=== PATIENT | male | born 1995 | race Two or more races ===

== ENCOUNTER 2024-06-28 06:14 | Emergency (ER) | payer MEDICAID, OTHER ==
[~2024-06-28] VITALS: Ht 190.5 cm; Wt 99.7 kg
[2024-06-28 07:33] VITALS: BP 124/80; PULSE 74; RESP 20; TEMP 98.1; O2SAT 98
--- NOTE | 2024-06-28 07:48 | DVH ---
CLINICAL INDICATION: trauma TECHNIQUE: 3 radiographic views of the left hand were obtained. Comparison: None FINDINGS/IMPRESSION: There is no evidence of acute fracture or dislocation. The visualized joint space is well maintained. The alignment is anatomical. There is no radiopaque foreign body.
[2024-06-28] MEDS ORDERED: AMPICILLIN & SULBACTAM SODIUM 3 GM in SODIUM CHL 0.9% 100 ML IV ONE (08:15)
--- NOTE | 2024-06-28 08:22 | ED.PDOC ---
History of Present Illness(SKN HPI Comments 29 year male presents for dog bite to the left hand. Bite occurred today 1 hr ago Immunization status up-to-date Denies abnormal animal behavior Denies history of immunocompromise (HIV hep B hep C) Denies fever chills night sweats Last Tdap unknown Patient has sustained a puncture wound to the 3rd digit of the left hand. A puncture wound to the 4th digit of the left hand Chief Complaint: Animal Bite Time Seen by MD: 07:00 History of Present Illness: Nurses Notes, Medications, Allergies Allergies: Coded Allergies: Amoxicillin (Verified Allergy, Intermediate, 06/28/24) Home Meds Active Scripts Ibuprofen (Ibuprofen) 800 Mg Tab, 1 TAB PO TID for 7 Days, #21 TAB 0 Refills Prov:SHAWN HILLIARD NP 06/28/24 Clindamycin Hcl (Clindamycin Hcl) 300 Mg Cap, 300 MG PO TID for 7 Days, #21 CAP 0 Refills Prov:SHAWN HILLIARD NP 06/28/24 Sulfamethoxazole W/Trimethopri (Bactrim Ds Tablet) 1 Tab Tb, 1 TAB PO BID for 7 Days, #14 TAB 0 Refills Prov:SHAWN HILLIARD NP 06/28/24 Information Source: Patient Mode of Arrival: Ambulatory Family History Family History: Reviewed,noncontributory to illness Social History Smoker: Non-Smoker Alcohol: Denies ETOH Use Drugs: Denies Drug Use All Other Systems: Reviewed and Negative (per hpi) Physical Exam General Appearance: No Apparent Distress, Normal HEENT: Normal ENT Inspection, Pharynx Normal, TMs Normal Neck: Full Range of Motion, Non-Tender, Normal, Normal Inspection Respiratory: Chest Non-Tender, Lungs Clear, No Accessory Muscle Use, No Respiratory Distress, Normal Breath Sounds Cardiovascular: No Edema, No JVD, No Murmur, No Gallop, Normal Peripheral Pulses, Regular Rate/Rhythm Breast Exam: Deferred Gastrointestinal: No Organomegaly, Non Tender, No Pulsatile Mass, Normal Bowel Sounds, Soft Genitalia: Deferred Pelvic: Deferred Rectal: Deferred Extremities: No calf tenderness, Normal capillary refill, Normal inspection, Normal range of motion, Non-tender, No pedal edema Musculoskeletal : Apperance: Normal Neurologic: Alert, No Motor Deficits, Normal Affect, Normal Mood, No Sensory Deficits Cerebellar Function: Normal Reflexes: Normal Skin: Dry, Normal Color, Warm Lymphatic: No Adenopathy Was a procedure done? Was a procedure done?: Yes Sedation Sedation?: No Laceration Repair : Location L hand Length 3rd and 4th finger Anesthetic: Lidocaine Laceration Repair Prep: Saline, Betadine Laceration Repair Wound Comple: epidermis/dermis repair Laceration Repair: Simple, Bacitracin, Non-adherent gauze, Gauze Informed consent obtained: Yes Risks, benefits, and alternati: Yes Differential Diagnosis (INTG) Differential Diagnosis: Other X-Ray, Labs, Meds, VS Vital Signs Date Time Temp Pulse Resp B/P (MAP) Pulse Ox O2 Delivery O2 Flow Rate FiO2 06/28/24 07:33 98.1 74 20 124/80 (95) 98 98.1 06/28/24 07:30 114 20 94 Room Air 06/28/24 07:30 98.4 114 20 115/81 (92) 94 98.4 06/28/24 06:24 98.4 114 20 115/81 (92) 94 Current Medications Medications (Trade) Dose Ordered Sig/Joseph Route Start Time Stop Time Status Last Admin Diphtheria/ Tetanus/Acell Pertussis (Boostrix T-Dap) 0.5 ml ONCE ONCE IM 06/28/24 08:15 06/28/24 08:43 DC 06/28/24 08:52 Ketorolac Tromethamine (Toradol Injection) 30 mg ONCE ONCE IV 06/28/24 08:15 06/28/24 08:43 DC 06/28/24 09:03 Clindamycin Phosphate 50 ml @ 50 mls/hr ONCE ONCE IV 06/28/24 08:45 06/28/24 09:44 DC 06/28/24 09:03 X-Ray, Labs, Meds, VS Comment Based on the history, exam, and test performed, there does not seem to be a retained foreign body, nerve injury, vascular injury, tendon injury, bone injury or foreign body. Wound appears clean. No evidence of purulent discharge. Doubtful for rabies as the dog is not a wild animal. No rabies vaccine given. Tdap updated Wound cleaned in the ER with jet irrigation. After copious irrigation, wound was closed with (except on hand/foot) Patient will be discharged home with prophylactic antibiotics. Patient to follow-up tomorrow for wound check Time of 1ST Reevaluation: 08:30 Reevaluation 1ST: Improved Patient Education/Counseling: Diagnosis, Treatment Family Education/Counseling: Diagnosis, Treatment Departure 1 Departure Time of Disposition: 08:34 Impression: Primary Impression: Dog bite Qualified Codes: W54.0XXA - Bitten by dog, initial encounter Disposition: HOME / SELF CARE / HOMELESS Condition: Stable e-Prescriptions Ibuprofen (Ibuprofen) 800 Mg Tab 1 TAB PO TID for 7 Days, #21 TAB 0 Refills Prov: SHAWN HILLIARD NP 06/28/24 Clindamycin Hcl (Clindamycin Hcl) 300 Mg Cap 300 MG PO TID for 7 Days, #21 CAP 0 Refills Prov: SHAWN HILLIARD METAL BONDING PRESS OPERATOR 06/28/24 Sulfamethoxazole W/Trimethopri (Bactrim Ds Tablet) 1 Tab Tb 1 TAB PO BID for 7 Days, #14 TAB 0 Refills Prov: SHAWN HILLIARD METAL BONDING PRESS OPERATOR 06/28/24 Critical Care Note Critical Care Time?: No Stability Stability form required: No Heart Score Heart Score: Heart Score Response (Comments) Value History N/A 0 EKG N/A 0 Age N/A 0 Risk Factors N/A 0 Troponin N/A 0 Total 0 SHAWN HILLIARD NP Jun 28, 2024 08:21
[2024-06-28] MEDS ORDERED: CLIN1CAP70 PO (08:40)
[2024-06-28] MEDS ORDERED: BACDST PO (08:40)
[2024-06-28] MEDS: TETANUS-DIPTH-ACEL PERTUSSIS 0.5ML SYR Tdap IM ONE (08:52)
[2024-06-28] MEDS: KETOROLAC TROMETH 30 MG/ML 1ML VIAL IV ONE (09:03)
[2024-06-28] MEDS: CLINDAMYCIN 300MG IV 50 ML IV ONE (09:03)
[2024-06-28] MEDS ORDERED: IBUP-1456 PO (10:11)
[2024-06-28] MEDS ORDERED: NEOMYCIN-BACITRACIN-POLYM UNITDOSE PKG TOP OINT TOP ONE (10:15)
== END 2024-06-28 10:15 | disposition home or self-care (01) ==
LOC: ER 06:14
DX: S61.452A Open bite of left hand, initial encounter (principal); Z79.1 Long term (current) use of non-steroidal anti-inflammatories (NSAID); Z79.899 Other long term (current) drug therapy; Z88.1 Allergy status to other antibiotic agents; W54.0XXA Bitten by dog, initial encounter; Y93.89 Activity, other specified; Y92.89 Other specified places as the place of occurrence of the external cause; Y99.8 Other external cause status
CPT/HCPCS: 73130; 90471; 90715; 96365; 96375; 99284; J1885; J3490

== ENCOUNTER 2024-06-29 09:50 | Emergency (ER) | payer MEDICAID ==
[~2024-06-29] VITALS: Ht 188 cm; Wt 100.2 kg
[~2024-06-29 09:50] MED LIST: BACDST PO; CLIN1CAP70 PO; IBUP-1456 PO
--- NOTE | 2024-06-29 11:18 | ED.PDOC ---
History of Present Illness(SKN HPI Comments Male presents for wound check. Was seen yesterday after a dog bite. Started antibiotics and complaints no symptoms at this time Chief Complaint: Wound Check Time Seen by MD: 10:41 History of Present Illness: Nurses Notes, Medications, Allergies Allergies: Coded Allergies: Amoxicillin (Verified Allergy, Intermediate, 06/28/24) Home Meds Active Scripts Ibuprofen (Ibuprofen) 800 Mg Tab, 1 TAB PO TID for 7 Days, #21 TAB 0 Refills Prov:KAMARI HILLIARDDavid Anaya HEAVY EQUIPMENT DIESEL MECHANIC 06/28/24 Clindamycin Hcl (Clindamycin Hcl) 300 Mg Cap, 300 MG PO TID for 7 Days, #21 CAP 0 Refills Prov:KAMARI HILLIARDDavid Anaya HEAVY EQUIPMENT DIESEL MECHANIC 06/28/24 Sulfamethoxazole W/Trimethopri (Bactrim Ds Tablet) 1 Tab Tb, 1 TAB PO BID for 7 Days, #14 TAB 0 Refills Prov:KAMARI HILLIARDO Jaclyn HEAVY EQUIPMENT DIESEL MECHANIC 06/28/24 Information Source: Patient Mode of Arrival: Ambulatory Family History Family History: Reviewed,noncontributory to illness Social History Smoker: Non-Smoker Alcohol: Denies ETOH Use Drugs: Denies Drug Use All Other Systems: Reviewed and Negative (per hpi) Physical Exam General Appearance: No Apparent Distress, Normal HEENT: Normal ENT Inspection, Pharynx Normal, TMs Normal Neck: Full Range of Motion, Non-Tender, Normal, Normal Inspection Respiratory: Chest Non-Tender, Lungs Clear, No Accessory Muscle Use, No Respiratory Distress, Normal Breath Sounds Cardiovascular: No Edema, No JVD, No Murmur, No Gallop, Normal Peripheral Pulses, Regular Rate/Rhythm Breast Exam: Deferred Gastrointestinal: No Organomegaly, Non Tender, No Pulsatile Mass, Normal Bowel Sounds, Soft Genitalia: Deferred Pelvic: Deferred Rectal: Deferred Extremities: No calf tenderness, Normal capillary refill, Normal inspection, Normal range of motion, Non-tender, No pedal edema Musculoskeletal : Apperance: Normal Neurologic: Alert, weight tester II-XII nml as Tested, No Motor Deficits, Normal Affect, Normal Mood, No Sensory Deficits Cerebellar Function: Normal Reflexes: Normal Skin: Dry, Normal Color, Warm Lymphatic: No Adenopathy Was a procedure done? Was a procedure done?: No Differential Diagnosis (INTG) Differential Diagnosis: Cellulitis, Puncture Wound, Other X-Ray, Labs, Meds, VS Vital Signs Date Time Temp Pulse Resp B/P (MAP) Pulse Ox O2 Delivery O2 Flow Rate FiO2 06/29/24 10:15 97.3 78 20 113/64 (80) 96 X-Ray, Labs, Meds, VS Comment Patient was seen yesterday S/P dog bite. On today there is no concerns of spreading or worsening infection. Skin is warm dry appropriate for ethnicity. There is no spreading erythema. No fluctuance or crepitus to palpation. No discharge. Return tomorrow for wound check Time of 1ST Reevaluation: 11:17 Reevaluation 1ST: Improved Patient Education/Counseling: Diagnosis, Treatment Family Education/Counseling: Diagnosis, Treatment Departure 1 Departure Time of Disposition: 11:17 Impression: Primary Impression: Visit for wound check Disposition: 01 HOME / SELF CARE / HOMELESS Condition: Fair Discharged With: Self Critical Care Note Critical Care Time?: No Stability Stability form required: No Heart Score Heart Score: Heart Score Response (Comments) Value History N/A 0 EKG N/A 0 Age N/A 0 Risk Factors N/A 0 Troponin N/A 0 Total 0 SHAWN HILLIARD HEAVY EQUIPMENT DIESEL MECHANIC Jun 29, 2024 11:18
[2024-06-29 11:20] VITALS: BP 113/64; PULSE 78; RESP 20; TEMP 97.3; O2SAT 96
== END 2024-06-29 11:20 | disposition home or self-care (01) ==
LOC: ER 09:50
DX: S61.255D Open bite of left ring finger without damage to nail, subsequent encounter (principal); Z79.1 Long term (current) use of non-steroidal anti-inflammatories (NSAID); Z88.0 Allergy status to penicillin; Z79.899 Other long term (current) drug therapy; W54.0XXD Bitten by dog, subsequent encounter
CPT/HCPCS: 99281; J7030

== ENCOUNTER 2024-06-30 13:23 | Inpatient (IN) | payer MEDICAID ==
[~2024-06-30] VITALS: Ht 190.5 cm; Wt 94.1 kg
--- NOTE | 2024-06-30 14:36 | ED.PDOC ---
History of Present Illness(N HPI Comments 29 y/o M, presents to the ED for CC of wound check. Patient states, he has been experiencing left 4th digit and left hand swelling/erythema following a dog bite x2days ago. Patient relays, that he was last seen at [facility] on 06/27/24 for s/p dog bite for which he received stitches and antibiotics. Patient comments on, skin being hot to touch and current 7/10 pain. Patient denies fever, left arm numbness, left arm weakness, or fatigue. No other associated symptom's, modifiers, recent injuries or sick contact at this time. Chief Complaint: Cellulitis Time Seen by MD: 14:12 History of Present Illness: Nurses Notes, Medications, Allergies Allergies: Coded Allergies: Amoxicillin (Verified Allergy, Intermediate, 06/28/24) Home Meds Active Scripts Ibuprofen (Ibuprofen) 800 Mg Tab, 1 TAB PO TID for 7 Days, #21 TAB 0 Refills Prov:SHAWN HILLIARD EDITORIAL MANAGER 06/28/24 Clindamycin Hcl (Clindamycin Hcl) 300 Mg Cap, 300 MG PO TID for 7 Days, #21 CAP 0 Refills Prov:SHAWN HILLIARD EDITORIAL MANAGER 06/28/24 Sulfamethoxazole W/Trimethopri (Bactrim Ds Tablet) 1 Tab Tb, 1 TAB PO BID for 7 Days, #14 TAB 0 Refills Prov:SHAWN HILLIARD EDITORIAL MANAGER 06/28/24 Information Source: Patient Mode of Arrival: Ambulatory Severity: Mild Timing: Days Duration: Since onset Prehospital treatment: None Location: Hand (left) Mechanism: Dog Developed: Generalized erythema Object: None Condition of Object: None Retained Foreign Body: No Immunization Status of Animal: Unknown History of: None Associated Signs and Symptoms: None Past Medical History PAST MEDICAL HISTORY: Denies Surgical History: Denies all surgeries Family History Family History: Reviewed,noncontributory to illness Social History Smoker: Non-Smoker Alcohol: Denies ETOH Use Drugs: Denies Drug Use Constitutional: denies: chills, diaphoresis, fatigue, fever, malaise, sweats, weakness, others EENTM: denies: blurred vision, double vision, ear bleeding, ear discharge, ear drainage, ear pain, ear ringing, eye pain, eye redness, hearing loss, mouth pain, mouth swelling, nasal discharge, nose bleeding, nose congestion, nose pain, photophobia, tearing, throat pain, throat swelling, voice changes, others Respiratory: denies: cough, hemoptysis, orthopnea, SOB at rest, shortness of breath, SOB with excertion, stridor, wheezing, others Cardiovascular: denies: chest pain, dizzy spells, diaphoresis, Dyspnea on exertion, edema, irregular heart beat, left arm pain, lightheadedness, palpitations, PND, syncope, others Gastrointestinal: denies: abdomen distended, abdominal pain, blood streaked bowels, constipated, diarrhea, dysphagia, difficulty swallowing, hematemesis, melena, nausea, poor appetite, poor fluid intake, rectal bleeding, rectal pain, vomiting, others Genitourinary: denies: burning, dysuria, flank pain, frequency, hematuria, incontinence, penile discharge, penile sore, pain, testicle pain, testicle swelling, urgency, others Neurological: denies: dizziness, fainting, headache, left sided numbness, left sided weakness, numbness, paresthesia, pre-existing deficit, right sided numbness, right sided weakness, seizure, speech problems, tingling, tremors, weakness, others Musculoskeletal: denies: back pain, gout, joint pain, joint swelling, muscle pain, muscle stiffness, neck pain, others Integumetry: reports: others (swelling, erythema); denies: bruises, change in color, change in hair/nails, dryness, laceration, lesions, lumps, rash, wounds Allergic/Immunocompromised: denies: Difficulty Healing, Frequent Infections, Hives, Itching, others Hematologic/Lymphatic: denies: anemia, blood clots, easy bleeding, easy bruising, swollen glands, others Endocrine: denies: excessive hunger, excessive sweating, excessive thirst, excessive urination, flushing, intolerance to cold, intolerance to heat, unexplained weight gain, unexplained weight loss, others Psychiatric: denies: anxiety, bipolar disorder, depression, hopeless, panic disorder, schizophrenia, sleepless, suicidal, others All Other Systems: Reviewed and Negative Physical Exam General Appearance: Moderate Distress HEENT: Normal ENT Inspection, Pharynx Normal, TMs Normal Neck: Full Range of Motion, Non-Tender, Normal, Normal Inspection Respiratory: Chest Non-Tender, Lungs Clear, No Accessory Muscle Use, No Respi ratory Distress, Normal Breath Sounds Cardiovascular: No Edema, No JVD, No Murmur, No Gallop, Normal Peripheral Pulses, Regular Rate/Rhythm Breast Exam: Deferred Gastrointestinal: No Organomegaly, Non Tender, No Pulsatile Mass, Normal Bowel Sounds, Soft Genitalia: Deferred Pelvic: Deferred Rectal: Deferred Extremities: No calf tenderness, Normal capillary refill, Normal inspection, Normal range of motion, Non-tender, No pedal edema Musculoskeletal : Apperance: Normal Neurologic: Alert, enamel machine operator II-XII nml as Tested, No Motor Deficits, Normal Affect, Normal Mood, No Sensory Deficits Cerebellar Function: Normal Reflexes: Normal Skin: Wounds (Left 3rd and 4th digit redness with swelling) Peripheral Pulses: 3+ Radial (R), 3+ Radial (L) Lymphatic: No Adenopathy Was a procedure done? Was a procedure done?: No Differential Diagnosis (INTG) Differential Diagnosis: Abrasion, Cellulitis Differential Diagnosis: Cellulitis, Contact Dermatitis X-Ray, Labs, Meds, VS Vital Signs Date Time Temp Pulse Resp B/P (MAP) Pulse Ox O2 Delivery O2 Flow Rate FiO2 06/30/24 14:07 98.3 73 16 122/69 (86) 97 Lab Test 06/30/24 15:26 06/30/24 15:06 Range/Units Lactic Acid Level Pending White Blood Count 8.9 4.4-10.8 10^3/uL Red Blood Count 5.21 4.5-5.90 10^6/uL Hemoglobin 16.8 13.5-17.5 g/dL Hematocrit 47.8 41.0-53.0 % Mean Corpuscular Volume 91.6 80.0-100.0 fL Mean Corpuscular Hemoglobin 32.1 H 28.0-32.0 pg Mean Corpuscular Hemoglobin Concent 35.1 32.0-36.0 g/dL Red Cell Distribution Width 13.6 11.8-14.3 % Platelet Count 221 140-450 10^3/uL Mean Platelet Volume 9.3 6.9-10.8 fL Neutrophils (%) (Auto) 63.7 37.0-80.0 % Lymphocytes (%) (Auto) 26.0 10.0-50.0 % Monocytes (%) (Auto) 7.2 0.0-12.0 % Eosinophils (%) (Auto) 2.5 0.0-7.0 % Basophils (%) (Auto) 0.6 0.0-2.0 % Neutrophils # (Auto) 5.6 1.6-8.6 10 ^3/uL Lymphocytes # (Auto) 2.3 0.4-5.4 10 ^3/uL Monocytes # (Auto) 0.6 0-1.3 10 ^3/uL Eosinophils # (Auto) 0.2 0-0.8 10 ^3/uL Basophils # (Auto) 0.1 0-0.2 10 ^3/uL Nucleated Red Blood Cells 0.1 % Sodium Level 136 136-145 mmol/L Potassium Level 4.4 3.5-5.1 mmol/L Chloride Level 103 98-107 mmol/L Carbon Dioxide Level 26 20-31 mmol/L Anion Gap 7 5-15 Blood Urea Nitrogen 8 L 9-23 mg/dL Creatinine 0.87 0.700-1.30 mg/dL Glomerular Filtration Rate Calc 120 >90 mL/min BUN/Creatinine Ratio 9.2 L 10.0-20.0 Serum Glucose 97 74-106 mg/dL Calcium Level 10.2 8.7-10.4 mg/dL Patient alert. Came in because of redness of the left hand. Was bit by dog few days ago. Vitals stable. House dog. There is redness which is increasing since yesterday. Has been seen in this ER after the dog bite for a wound check. He is on antibiotics. Continues to have increasing redness. WBC within normal limits. Hemoglobin within normal limits. Establish intravenous access. Was given fluids. Was given vancomycin. Was given clindamycin. Explained to the patient. Continue monitoring. Time of 1ST Reevaluation: 14:42 Reevaluation 1ST: Unchanged Patient Education/Counseling: Diagnosis, Treatment Family Education/Counseling: No Family Present Additional Information I reviewed the following notes from patient's past medical history: 06/28/24 DOG BITE, 06/29/24 WOUND CHECK The following tests were ordered, and results were reviewed by me: CBC, BMP, LACTIC ACID W/REFLEX I discussed treatment and results with medical personnel and: PATIENT Departure 1 Departure Time of Disposition: 16:00 Impression: Primary Impression: Cellulitis Qualified Codes: L03.114 - Cellulitis of left upper limb Disposition: ADMITTED INPATIENT Admit to: Med Surg Condition: Guarded Critical Care Note Critical Care Time?: No Stability Stability form required: No Heart Score Heart Score: Heart Score Response (Comments) Value History N/A 0 EKG N/A 0 Age N/A 0 Risk Factors N/A 0 Troponin N/A 0 Total 0 I personally scribed for LIV JOHNS MD ([email or web address]) on 06/30/24 at 14:36. Electronically submitted by Romana Sidhu ([email or web address]). I personally scribed for LIV JOHNS MD ([email or web address]) on 06/30/24 at 15:44. Electronically submitted by Romana Sidhu ([email or web address]). LIV JOHNS MD Jun 30, 2024 14:36
[2024-06-30 15:30] LABS: Basophils # (auto) 0.1 10 ^3/uL (0-0.2); Basophils % (auto) 0.6 % (0.0-2.0); Eosinophils # (auto) 0.2 10 ^3/uL (0-0.8); Eosinophils % (auto) 2.5 % (0.0-7.0); Hematocrit 47.8 % (41.0-53.0); Hemoglobin 16.8 g/dL (13.5-17.5); Lymphocytes # (auto) 2.3 10 ^3/uL (0.4-5.4); Mean Corpuscular Hemoglobin 32.1 pg (28.0-32.0); Mean Corpuscular Hgb Conc. 35.1 g/dL (32.0-36.0); Mean Corpuscular Volume 91.6 fL (80.0-100.0); Monocytes # (auto) 0.6 10 ^3/uL (0-1.3); Monocytes % (auto) 7.2 % (0.0-12.0); Neutrophils # (auto) 5.6 10 ^3/uL (1.6-8.6); Neutrophils % (auto) 63.7 % (37.0-80.0); Nucleated Red Blood Cells % 0.1 %; Platelet Count (auto) 221 10^3/uL (140-450); Red Blood Cells 5.21 10^6/uL (4.5-5.90); Red Cell Distribution Width 13.6 % (11.8-14.3); White Blood Cell 8.9 10^3/uL (4.4-10.8)
[2024-06-30 15:36] LABS: Chloride 103 mmol/L (98-107); Potassium 4.4 mmol/L (3.5-5.1)
[2024-06-30 15:37] LABS: Anion Gap 7 (5-15); Carbon Dioxide 26 mmol/L (20-31)
[2024-06-30 15:38] LABS: Calcium 10.2 mg/dL (8.7-10.4)
[2024-06-30 15:40] LABS: Sodium 136 mmol/L (136-145)
[2024-06-30 15:42] LABS: Glucose 97 mg/dL (74-106)
[2024-06-30 15:43] LABS: BUN/Creatinine Ratio 9.2 (10.0-20.0); Blood Urea Nitrogen 8 mg/dL (9-23)
[2024-06-30 18:00] VITALS: PULSE 73; RESP 16; O2SAT 97
[2024-06-30] MEDS: CLINDAMYCIN 600MG IV 50 ML IV ONE (18:31)
[2024-06-30] MEDS: VANCOMYCIN 1GM/250ML KIT 250 ML IV ONE (18:33)
[2024-06-30] MEDS: SODIUM CHLORIDE 0.9% 1,000 ML IV SCH (22:30)
[2024-06-30] MEDS ORDERED: ACETAMINOPHEN 325 MG TAB PO PRN (22:30)
[2024-06-30] MEDS ORDERED: MORPHINE SULFATE INJ 2 MG/ml SYRG IV PRN (22:30)
[2024-06-30] MEDS ORDERED: AMPICILLIN & SULBACTAM SODIUM 3 GM in SODIUM CHL 0.9% 100 ML IV SCH (23:00)
[2024-06-30] MEDS ORDERED: CLINDAMYCIN 600MG IV 50 ML IV SCH (23:00)
[2024-06-30 23:16] LABS: Blood Alcohol 3.9 mg/dL (<10); Magnesium 2.2 mg/dL (1.6-2.6)
--- NOTE | 2024-06-30 23:35 | DVH ---
CT LEFT LOWER EXTREMITY. HISTORY: Cellulitis versus abscess left hand COMPARISON: None TECHNIQUE: Multiple axial CT images of the left lower extremity were obtained without intravenous con trast. Coronal and sagittal bone and soft tissue reformations were also obtained. One or more of the following radiation dose reduction techniques were used for this examination: automated exposure con trol, adjustment of the mA and/or kV according to patient size, use of iterative reconstruction techn ique. FINDINGS: IMPRESSION: No acute fracture dislocation. No destructive osseous lesions. No radiopaque foreign objects. Mild d iffuse subcutaneous tissue fat stranding which can be seen with cellulitis or edema. No focal fluid collection to suggest abscess. No abnormal enhancement.
[2024-07-01] VITALS (7 sets, daily range): BP systolic 107–130; BP diastolic 70–82; PULSE 72–84; RESP 16–20; TEMP 97.7–98.4; O2SAT 94–97
[2024-07-01] LABS: Urine Bacteria None Seen /hpf (None Seen)
--- NOTE | 2024-07-01 00:13 | DVHHPRES ---
History of Present Illness Resident Creating Document: GAYLE BLUE RESIDENT History of Present Illness ARIES DODGE is a 29-year-old male with no significant PMH presented to the ED with the chief complaints of increasing pain in his wound. Patient reported he has been bitten by dog on left middle finger 2 days ago, visited ED, got tetanus toxoid, clinda and neomycin. But since today moaning patient has been having more pain associated with the swelling and redness and wound which prompted him to visit ED. on my assessment patient denies fever, chills, palpitations and other acute associated symptoms PMH: Not significant PSH: Denies Family history: Not significant Social history: Lives with the family. Smokes marijuana but denies alcohol and other drug abuse Allergies: Amoxicillin Home medications: None Review of Systems Constitutional: No: Fever, Chills, Sweats, Weakness, Malaise, Other Eyes: No: Pain, Vision change, Conjunctivae inflammation, Eyelid inflammation, Other, Redness Cardiovascular: No: Chest Pain, Palpitations, Orthopnea, Paroxysmal Noc. Dyspnea, Edema, Lt Headedness, Other Gastrointestinal: No: Nausea, Vomiting, Abdominal Pain, Diarrhea, Constipation, Melena, Hematochezia, Other Musculoskeletal: hand pain (Left proximal 3rd finger have deep wound) Skin: No: Rash, Lesions, Jaundice, Bruising, Other Neurological: No: Weakness, Numbness, Incoordination, Change in speech, Confusion, Seizures, Other Allergies: Coded Allergies: Amoxicillin (Verified Allergy, Intermediate, 06/28/24) Medications Current Medications Medications Dose Ordered Sig/Joseph Route Start Time Stop Time Status Last Admin Dose Admin Sodium Chloride 10 ml Q8HR IV 07/01/24 06:00 Sodium Chloride 1,000 ml @ 60 mls/hr [id number] IV 06/30/24 22:30 Ondansetron HCl 4 mg Q4HP PRN IV 06/30/24 22:30 Acetaminophen 650 mg Q6HP PRN PO 06/30/24 22:30 Morphine Sulfate 2 mg Q4HPRN PRN IV 06/30/24 22:30 Clindamycin Phosphate 50 ml @ 50 mls/hr Q8HR IV 06/30/24 23:15 Ceftriaxone Sodium 50 ml @ 100 mls/hr Q12HR IV 06/30/24 23:15 Exam Vital Signs Vital Signs Date Time Temp Pulse Resp B/P (MAP) Pulse Ox O2 Delivery O2 Flow Rate FiO2 06/30/24 21:05 72 16 96 Room Air 06/30/24 21:05 122/64 (83) 06/30/24 21:05 0 21 06/30/24 14:07 98.3 Exam General Appearance: Alert, Oriented X3, Cooperative, Not in acute distress HEENT: Atraumatic, Mucous membranes moist/pink Respiratory: Clear to auscultation, Normal air movement, No added sounds Cardiovascular: Regular rate, Normal S1, Normal S2, No murmurs Abdominal: Active bowel sounds, Soft, no distention, no tenderness Extremities and skin : Left proximal 3rd finger have deep wound with sutures placed, dorsum of hand warmth red, tenderness. Neuro: Normal speech, sensorimotor deficits none Psych/Mental Status: Mental status NL, Mood NL Nurse was there as sharperone during examination Labs/Xrays Labs Test 06/30/24 23:53 06/30/24 23:03 06/30/24 15:06 Range/Units Lactic Acid Level 0.6 0.4-2.0 mmol/L White Blood Count 8.9 4.4-10.8 10^3/uL Red Blood Count 5.21 4.5-5.90 10^6/uL Hemoglobin 16.8 13.5-17.5 g/dL Hematocrit 47.8 41.0-53.0 % Mean Corpuscular Volume 91.6 80.0-100.0 fL Mean Corpuscular Hemoglobin 32.1 H 28.0-32.0 pg Mean Corpuscular Hemoglobin Concent 35.1 32.0-36.0 g/dL Red Cell Distribution Width 13.6 11.8-14.3 % Platelet Count 221 140-450 10^3/uL Mean Platelet Volume 9.3 6.9-10.8 fL Neutrophils (%) (Auto) 63.7 37.0-80.0 % Lymphocytes (%) (Auto) 26.0 10.0-50.0 % Monocytes (%) (Auto) 7.2 0.0-12.0 % Eosinophils (%) (Auto) 2.5 0.0-7.0 % Basophils (%) (Auto) 0.6 0.0-2.0 % Neutrophils # (Auto) 5.6 1.6-8.6 10 ^3/uL Lymphocytes # (Auto) 2.3 0.4-5.4 10 ^3/uL Monocytes # (Auto) 0.6 0-1.3 10 ^3/uL Eosinophils # (Auto) 0.2 0-0.8 10 ^3/uL Basophils # (Auto) 0.1 0-0.2 10 ^3/uL Nucleated Red Blood Cells 0.1 % Sodium Level 136 136-145 mmol/L Potassium Level 4.4 3.5-5.1 mmol/L Chloride Level 103 98-107 mmol/L Carbon Dioxide Level 26 20-31 mmol/L Anion Gap 7 5-15 Blood Urea Nitrogen 8 L 9-23 mg/dL Creatinine 0.87 0.700-1.30 mg/dL Glomerular Filtration Rate Calc 120 >90 mL/min BUN/Creatinine Ratio 9.2 L 10.0-20.0 Serum Glucose 97 74-106 mg/dL Calcium Level 10.2 8.7-10.4 mg/dL Magnesium Level 2.2 1.6-2.6 mg/dL Plasma/Serum Blood Alcohol 3.9 <10 mg/dL Assessment/Plan Assessment/Plan # Dog bite Left proximal 3rd finger # cellulitis VS abscess -currently giving ceftriaxone 1 g b.i.d. and clinda Q8h -ordered wound consult and wound culture -consulted surgeon -ordered hand CT -patient refused rabies vaccine and immunoglobulins due to the dogs were vaccinated # marijuana abuse disorder -counseled regarding cessation for more than 17 minute PUD PPX: Not indicated VTE PPX: Ambulatory Diet: Regular Goals of care discussed with the patient for more than 29 minutes: Full code status Case discussed with Dr. Carter, patient and nurse. Plan discussed with: Patient My Orders Orders - GAYLE BLUE RESIDENT Procedure Category Date Status Time Admit ADMIT 06/30/24 Transmitted 22:30 Allergies PHYLICIA 06/30/24 In Process 22:30 Code Status CODE 06/30/24 Transmitted 22:30 Sodium Chloride Lock PHA 07/01/24 In Process (Saline Lock Ns) 06:00 Sodium Chloride 0.9% PHA 06/30/24 In Process 22:30 Ondansetron Hcl PHA 06/30/24 In Process (Zofran) 22:30 Complete Blood Count LAB 07/01/24 Logged 04:00 Comprehensive LAB 07/01/24 Logged Metabolic Panel 04:00 Condition: Stable PHYLICIA 06/30/24 In Process 22:30 Acetaminophen Tablet PHA 06/30/24 In Process (Tylenol Tablet) 22:30 Morphine Sulfate PHA 06/30/24 In Process Injection 22:30 Ct L Hand Wo Contrast CT 06/30/24 Resulted 22:52 * Surgical Consult CONS 06/30/24 Transmitted Drug Screen LAB 06/30/24 In Process 22:52 Urinalysis LAB 06/30/24 In Process 22:52 Clindamycin 600mg Iv PHA 06/30/24 In Process (Cleocin Iv) 23:15 Ceftriaxone 1gm/50ml PHA 06/30/24 In Process D5w (Rocephin) 23:15 Wound Culture W/ Gs TALAT 07/01/24 Uncollected 00:09 * Wound Consult CONS 07/01/24 Transmitted Date of Service: Jun 30, 2024 Billing Provider: BORIS CARTER MD Common Visit Codes: [id number] INP/OBS CARE (HIGH) GAYLE BLUE RESIDENT Jul 01, 2024 00:13 BORIS CARTER MD Jul 01, 2024 11:28
[2024-07-01] MEDS: cefTRIAXone 1GM/50ML D5W 50 ML IV SCH (00:26)
[2024-07-01] MEDS: RABIES IMMUNE GLOBULIN 300unit/2ml (150unit/ml) INJ INFIL ONE (01:00)
[2024-07-01] MEDS: RABIES IMMUNE GLOBULIN 300unit/2ml (150unit/ml) INJ IM ONE (01:00)
[2024-07-01] MEDS: RABIES VACCINE (PCEC)/PF 2.5 UNITS IM ONE ×2 (01:00→16:15)
[2024-07-01 01:03] LABS: Urine Blood Negative /uL (Negative); Urine Clarity Clear (Clear); Urine Color Light-Yellow (Yellow); Urine Protein, UAD Negative (Negative); Urine Specific Gravity 1.012 (1.001-1.035); Urine Squamous Epithelial Cell FEW /hpf (<5); Urine Urobilinogen Normal (Negative); Urine WBC < 1 /HPF (0-3); Urine pH 6.5 (5.0-9.0)
[2024-07-01 01:35] LABS: Opiate Scree,Urine Neg (NEGATIVE)
[2024-07-01 01:36] LABS: Amphetamine Screen, Urine Neg (NEGATIVE); Barbiturate Scree,Urine Neg (NEGATIVE); Benzodiazephine Screen, Urine Neg (NEGATIVE); Cannabinoid Screen, Urine Pos (NEGATIVE); Cocaine Screen, Urine Neg (NEGATIVE); Phencyclidine Screen, Urine Neg (NEGATIVE)
[2024-07-01] MEDS: CLINDAMYCIN 600MG IV 50 ML IV SCH (01:37)
[2024-07-01 03:53] LABS: Basophils # (auto) 0 10 ^3/uL (0-0.2); Basophils % (auto) 0.4 % (0.0-2.0); Eosinophils # (auto) 0.2 10 ^3/uL (0-0.8); Eosinophils % (auto) 3.3 % (0.0-7.0); Hematocrit 47.2 % (41.0-53.0); Hemoglobin 15.8 g/dL (13.5-17.5); Lymphocytes # (auto) 2.3 10 ^3/uL (0.4-5.4); Lymphocytes % (auto) 30.9 % (10.0-50.0); Mean Corpuscular Hemoglobin 31.6 pg (28.0-32.0); Mean Corpuscular Hgb Conc. 33.6 g/dL (32.0-36.0); Monocytes # (auto) 0.6 10 ^3/uL (0-1.3); Monocytes % (auto) 7.6 % (0.0-12.0); Neutrophils # (auto) 4.3 10 ^3/uL (1.6-8.6); Neutrophils % (auto) 57.8 % (37.0-80.0); Nucleated Red Blood Cells % 0.1 %; Platelet Count (auto) 205 10^3/uL (140-450); Red Blood Cells 5.02 10^6/uL (4.5-5.90); Red Cell Distribution Width 13.5 % (11.8-14.3); White Blood Cell 7.5 10^3/uL (4.4-10.8)
[2024-07-01 04:05] LABS: Alanine Aminotransferase 23 U/L (7-40); Albumin 4.6 g/dL (3.2-4.8); Alkaline Phosphatase 47 U/L (46-116); Anion Gap 8 (5-15); Aspartate Aminotransferase 14 U/L (13-40); BUN/Creatinine Ratio 7.5 (10.0-20.0); Bilirubin, Total 1.1 mg/dL (0.2-1.0); Calcium 9.9 mg/dL (8.7-10.4); Carbon Dioxide 25 mmol/L (20-31); Chloride 106 mmol/L (98-107); Glucose 90 mg/dL (74-106); Potassium 4.2 mmol/L (3.5-5.1); Sodium 139 mmol/L (136-145); Total Protein 6.7 g/dL (5.7-8.2)
[2024-07-01 04:16] LABS: Blood Urea Nitrogen 6 mg/dL (9-23)
[2024-07-01] MEDS: SODIUM CHLOR 0.9% PF (SALINE LOCK) 10ML VIAL/SYR IV SCH (05:51)
[2024-07-01] MEDS: ONDANSETRON HCL 4 MG/2 ML VIAL IV PRN (13:58)
--- NOTE | 2024-07-01 18:19 | DVHDSRES ---
Discharge Summary Date of Admission Resident Creating Document: GAYLE BLUE RESIDENT Jun 30, 2024 at 22:30 Date of Discharge: Jul 01, 2024 Admitting Diagnosis Left hand Cellulitis, status post dog bite, rule out acute compartment syndrome Labs/Diagnostic Data: Laboratory Results Test 07/01/24 02:58 06/30/24 23:53 06/30/24 23:03 06/30/24 15:06 White Blood Count 7.5 10^3/uL (4.4-10.8) Red Blood Count 5.02 10^6/uL (4.5-5.90) Hemoglobin 15.8 g/dL (13.5-17.5) Hematocrit 47.2 % (41.0-53.0) Mean Corpuscular Volume 94.0 fL (80.0-100.0) Mean Corpuscular Hemoglobin 31.6 pg (28.0-32.0) Mean Corpuscular Hemoglobin Concent 33.6 g/dL (32.0-36.0) Red Cell Distribution Width 13.5 % (11.8-14.3) Platelet Count 205 10^3/uL (140-450) Mean Platelet Volume 9.6 fL (6.9-10.8) Neutrophils (%) (Auto) 57.8 % (37.0-80.0) Lymphocytes (%) (Auto) 30.9 % (10.0-50.0) Monocytes (%) (Auto) 7.6 % (0.0-12.0) Eosinophils (%) (Auto) 3.3 % (0.0-7.0) Basophils (%) (Auto) 0.4 % (0.0-2.0) Neutrophils # (Auto) 4.3 10 ^3/uL (1.6-8.6) Lymphocytes # (Auto) 2.3 10 ^3/uL (0.4-5.4) Monocytes # (Auto) 0.6 10 ^3/uL (0-1.3) Eosinophils # (Auto) 0.2 10 ^3/uL (0-0.8) Basophils # (Auto) 0 10 ^3/uL (0-0.2) Nucleated Red Blood Cells 0.1 % Sodium Level 139 mmol/L (136-145) Potassium Level 4.2 mmol/L (3.5-5.1) Chloride Level 106 mmol/L (98-107) Carbon Dioxide Level 25 mmol/L (20-31) Anion Gap 8 (5-15) Blood Urea Nitrogen 6 mg/dL (9-23) Creatinine 0.80 mg/dL (0.700-1.30) Glomerular Filtration Rate Calc 123 mL/min (>90) BUN/Creatinine Ratio 7.5 (10.0-20.0) Serum Glucose 90 mg/dL (74-106) Calcium Level 9.9 mg/dL (8.7-10.4) Total Bilirubin 1.1 mg/dL (0.2-1.0) Aspartate Amino Transferase (AST) 14 U/L (13-40) Alanine Aminotransferase (ALT) 23 U/L (7-40) Alkaline Phosphatase 47 U/L (46-116) Total Protein 6.7 g/dL (5.7-8.2) Albumin 4.6 g/dL (3.2-4.8) Urine Color Light-yellow (Yellow) Urine Clarity Clear (Clear) Urine pH 6.5 (5.0-9.0) Urine Specific [place] 1.012 (1.001-1.035) Urine Protein Negative (Negative) Urine Ketones 3+ (Negative) Urine Blood Negative /uL (Negative) Urine Nitrite Negative (Negative) Urine Bilirubin Negative (Negative) Urine Urobilinogen Normal mg/dL (Negative) Urine Leukocyte Esterase Negative /uL (Negative) Urine RBC 2 /hpf (0 - 3) Urine Microscopic WBC < 1 /HPF (0-3) Urine Squamous Epithelial Cells Few /hpf (<5) Urine Bacteria None seen /hpf (None Seen) Urine Glucose Normal mg/dL (Normal) Urine Opiates Screen Neg (NEGATIVE) Urine Fentanyl Screen Neg (NEGATIVE) Urine Barbiturates Screen Neg (NEGATIVE) Urine Phencyclidine Screen Neg (NEGATIVE) Urine Amphetamines Screen Neg (NEGATIVE) Urine Benzodiazepines Screen Neg (NEGATIVE) Urine Cocaine Screen Neg (NEGATIVE) Urine Cannabinoids Screen Pos (NEGATIVE) Lactic Acid Level 0.6 mmol/L (0.4-2.0) Magnesium Level 2.2 mg/dL (1.6-2.6) Plasma/Serum Blood Alcohol 3.9 mg/dL (<10) Other Laboratory Tests 07/01/24 02:58 Brief Hx & Hospital Course: ARIES DODGE is a 29-year-old male with no significant PMH presented to the ED with the chief complaints of increasing pain in his wound. Patient reported he has been bitten by dog on left middle finger 2 days ago, visited ED, got tetanus toxoid, clinda and neomycin. But since today moaning patient has been having more pain associated with the swelling and redness and wound which prompted him to visit ED. on my assessment patient denies fever, chills, palpitations and other acute associated symptoms. On lab workup elevated bilirubin 1.1. Patient refused rabies vaccine on admission. Hospital course-patient came with pain in the left hand after having dog bite 2 days before. Patient was admitted to the hospital due to acute cellulitis of the left hand with suspected sepsis, rule out compartment syndrome. On admission patient's left hand was red, swollen, edematous, tender to touch. Patient was treated conservatively with IV antibiotic. Patient's pain, redness, swelling has reduced with treatment. Patient refused rabies vaccine even after explained the need of rabies vaccine to prevent further complication. Patient denied. Patient is awake, alert oriented patient has a right to refuse. Patient is being discharged home with the antibiotic cefpodoxime and clindamycin. Patient was advised to follow up with the primary care physician in 1 week and patient verbalized he will contact anemia uncontrolled department. Patient was advised to follow up with the primary care physician in 1 week. Patient was hemodynamically stable on discharge. Diagnosis Cellulitis of the left hand, ruled out acute compartment syndrome Status post dog bite on the left proximal 3rd finger Substance abuse, marijuana Discharge plan- Cefpodoxime 200 mg by mouth 2 times a day for 10 days Clindamycin 300 mg by mouth 3 times a day for 10 days OTC Ibuprofen 400 mg q.6h by mouth as needed OTC pantoprazole 40 mg daily for 10 days Please follow up with the primary care physician in 1 week Patient agreed to report anemia uncontrolled department regarding dog bite Refused to take rabies vaccine Operations or Procedures [address] [address] Ph: [phone] DIAGNOSTIC IMAGING Diagnostic Imaging Report : [id number] Signed PATIENT: ARIES DODGE ACCT: [id number] UNIT: [id number] : 1995 LOC: ER ROOM / BED: / AGE / SEX: 29 / M ADM STATUS: REG ER SERVICE 51 ORDERING PHYSICIAN: GAYLE BLUE RESIDENT PROCEDURE(s): LHNCT - CT L HAND WO CONTRAST REASON: Cellulitis versus abscess left hand ORDER NUMBER(s): [id number], ACCESSION NUMBER(s): [id number] CT LEFT LOWER EXTREMITY. HISTORY: Cellulitis versus abscess left hand COMPARISON: None TECHNIQUE: Multiple axial CT images of the left lower extremity were obtained without intravenous contrast. Coronal and sagittal bone and soft tissue reformations were also obtained. One or more of the following radiation dose reduction techniques were used for this examination: automated exposure control, adjustment of the mA and/or kV according to patient size, use of iterative reconstruction technique. FINDINGS: IMPRESSION: No acute fracture dislocation. No destructive osseous lesions. No radiopaque foreign objects. Mild diffuse subcutaneous tissue fat stranding which can be seen with cellulitis or edema. No focal fluid collection to suggest abscess. No abnormal enhancement. ATED BY: AAYUSH BARNARD DO DICTATED DATE/TIME: 06/30/242331 SIGNED BY: AAYUSH BARNARD DO SIGNED DATE/TIME: 06/30/242331 CC: Condition at Discharge: Stable Final Diagnosis/Problems List Cellulitis of the left hand, ruled out acute compartment syndrome Status post dog bite on the left proximal 3rd finger Substance abuse, marijuana Discharge Disposition: Home Discharge Instruct/Medications Follow Up/Referral: Follow up with the primary care physician in 1 week Patient agreed to report to anemia controlled department regarding dog bite Medications: Cefpodoxime 200 mg by mouth 2 times a day for 10 days Clindamycin 300 mg by mouth 3 times a day for 10 days Ibuprofen 400 mg q.6h by mouth as needed OTC pantoprazole 40 mg daily for 10 days Please follow up with the primary care physician in 1 week Patient agreed to report anemia uncontrolled department regarding dog bite Refused rapid vaccine even after explained the need of rabies vaccine Discharge Statement: "Patient was advised to return to the ER or call 911 if any headaches, dizziness, shortness of breath, chest pain, abdominal pain, bleeding, fevers, or worsening of medical condition. Patient was counseled about treatment plan, medications, possible side effects, patientverbalized understanding. All questions were answered to the best of my ability. This discharge took greater then 30 minutes in planning, reviewing documentation, counseling the patient, and discussing with other team members." ASSESSMENT ASSESSMENT Assessment Date of Service: Jul 01, 2024 Billing Provider: CHERELLE LOPEZ MD Common Visit Codes: [id number]/OBS DISCH DAY >30min VALERIE GAR Jul 01, 2024 18:19 CHERELLE LOPEZ MD Jul 05, 2024 23:58
[2024-07-01] MEDS ORDERED: CEFP200T15 PO ×2 (18:58)
[2024-07-01] MEDS ORDERED: CLIN1CAP70 PO ×2 (18:58)
== END 2024-07-01 20:09 | disposition home or self-care (01) | DRG 383 ==
LOC: ER 13:29 → OVERFLOW 22:30
PROVIDERS: ADMIT Student in an Organized Health Care Education/Training Program; ATTEND Emergency Medicine
DX: L03.114 Cellulitis of left upper limb (principal); F12.10 Cannabis abuse, uncomplicated; S61.253A Open bite of left middle finger without damage to nail, initial encounter; Z88.1 Allergy status to other antibiotic agents; Z79.899 Other long term (current) drug therapy; Z79.1 Long term (current) use of non-steroidal anti-inflammatories (NSAID); Z88.0 Allergy status to penicillin; W54.0XXA Bitten by dog, initial encounter; Y93.89 Activity, other specified; Y92.89 Other specified places as the place of occurrence of the external cause; Y99.8 Other external cause status
CPT/HCPCS: 36415; 73200; 80048; 80053; 80307; 80320; 81001; 83605; 83735; 85025; 87040; 90675; 96365; G0378; J2405; J3490

== ENCOUNTER 2025-03-17 12:02 | Emergency (ER) | payer MEDICAID ==
[~2025-03-17 12:02] MED LIST changes: +CEFP200T15 PO
== END 2025-03-17 12:09 | disposition left against medical advice (07) ==
LOC: ER 12:02
DX: Z48.00 Encounter for change or removal of nonsurgical wound dressing (principal); Z79.899 Other long term (current) drug therapy

== ENCOUNTER 2025-03-19 09:18 | Emergency (ER) | payer MEDICAID ==
[~2025-03-19] VITALS: Ht 190.5 cm; Wt 93.0 kg
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
[2025-03-19 10:15] VITALS: BP 136/78; PULSE 78; RESP 16; TEMP 98.7; O2SAT 97
[2025-03-19] MEDS ORDERED: BACDST PO (10:15)
== END 2025-03-19 10:19 | disposition home or self-care (01) ==
LOC: ER 09:18
DX: S05.32XD Ocular laceration without prolapse or loss of intraocular tissue, left eye, subsequent encounter (principal); Z48.02 Encounter for removal of sutures; Z88.0 Allergy status to penicillin; Z79.899 Other long term (current) drug therapy; X58.XXXD Exposure to other specified factors, subsequent encounter